=== PATIENT | male | born 1995 | race Caucasian/White ===

== ENCOUNTER 2017-01-09 09:52 | Day surgery (SDC) | payer BC ==
[2017-01-03 13:03] VITALS: BMI 22.8
[2017-01-09] MEDS ORDERED: ONDANSETRON 4 MG/2 ML VIAL IVPUSH PRN (11:55)
[2017-01-09] MEDS ORDERED: oxyCODONE HCL 5 MG TABLET PO PRN (11:55)
[2017-01-09] MEDS ORDERED: ACETAMINOPHEN 325 MG TABLET (FP) PO PRN (11:55)
[2017-01-09] MEDS ORDERED: LACTATED RINGERS SOLUTION 1,000 ML IV SCH (12:00)
[2017-01-09] MEDS ORDERED: MIDAZOLAM HCL 2 MG/2 ML SINGLE DOSE VIAL ONE (12:04)
[2017-01-09 13:20] VITALS: TEMP 98.9
[2017-01-09 13:29] VITALS: BP 120/73; PULSE 64
--- NOTE | 2017-01-10 10:00 | OP ---
DATE OF OPERATION: 01/09/2017 PREOPERATIVE DIAGNOSIS: Left small trigger finger. POSTOPERATIVE DIAGNOSIS: Left small trigger finger. OPERATIVE PROCEDURE: Left small trigger finger release. ANESTHESIA: Local with sedation. COMPLICATIONS: None. ESTIMATED BLOOD LOSS: Minimal. INDICATION FOR PROCEDURE: The patient is a 21-year-old male with the above finding, indicated for operative treatment. Risks, benefits, and alternatives were discussed with the patient at length and proper informed consent was obtained. DETAILS: After proper identification of the patient and correct operative site, patient was brought to the operating room and placed supine on the operating room table. All bony prominences were well padded. Sedation was given by the anesthesiologist. Local anesthesia was given with 2% lidocaine. The left upper extremity was prepped and draped in the usual sterile fashion. A well-padded tourniquet was placed with a sterile prep. Esmarch bandage was used to exsanguinate the left upper extremity. The tourniquet was inflated to 250 mmHg. A longitudinal incision was made over the A1 giovanni to the small finger. Incision was taken sharply through the skin, with blunt and sharp dissection through the subcutaneous tissues. The A1 giovanni was divided. Patient was then asked to flex and extend his finger and no further triggering was noted. The wound was irrigated with copious amounts of normal saline and repaired with a 5-0 nylon suture. Sterile dressings were applied. Patient remained under sedation and brought to recovery in stable condition. He tolerated the procedure well. BARB MOLINA M.D. [id number]
== END 2017-01-09 13:45 | disposition home or self-care (01) ==
LOC: FASU 09:52
PROVIDERS: ATTEND Orthopaedic Surgery Hand Surgery
PROC: 0LN80ZZ Release Left Hand Tendon, Open Approach (ICD-10-PCS; principal; 2017-01-09 11:30)
DX: M65.352 Trigger finger, left little finger (principal)